=== PATIENT | male | born 1990 | race American Indian/Alaskan Native ===

== ENCOUNTER 2019-05-06 17:19 | Emergency (ER) | payer OTHER ==
--- NOTE | 2019-05-06 18:06 | Event Note ---
ED Screening Note ED Screening Note: R INDEX FINGER PAIN SP HITTING IT WITH HAMMER LARGE LAC TDAP UTD MEDICATED WITH MOTRIN This initial assessment/diagnostic orders/clinical plan/treatment(s) is/are subject to change based on patients health status, clinical progression and re- assessment by fellow clinical providers in the ED. Further treatment and workup at subsequent clinical providers discretion. Patient/guardian urged not to elope from the ED as their condition may be serious if not clinically assessed and managed. Initial orders include: XRAY LAC REPAIR
[2019-05-06 18:09] VITALS: BP 157/84
[2019-05-06] MEDS ORDERED: XYLOCAINE 1% 20 mL INFILTRATI ONE (18:11)
[2019-05-06] MEDS ORDERED: IBUPROFEN PO ONE (18:11)
[2019-05-06] MEDS ORDERED: NACL 0.9% IR ONE (18:11)
--- NOTE | 2019-05-06 18:57 | XRay Report ---
Right index finger 3 views 1834 INDICATION: Struck right index finger with sledgehammer today, pain Extensive soft tissue swelling is seen in the distal aspect of the index finger, particularly ventral ly in the distal phalanx. On AP and oblique views a tiny bony density is seen just lateral to the bas e of the tuft of the distal phalanx which could be a tiny avulsion though I do not see an obvious don or site. No other evidence of fracture or dislocation is seen. No soft tissue gas is seen. Signer Name: Joao Norris MD Signed: 05/06/2019 6:53 PM Workstation Name: [id number]
[2019-05-06] MEDS ORDERED: ROCEPHIN IM ONE (19:11)
[2019-05-06] MEDS ORDERED: XYLOCAINE 1% MPF 5 mL INFILTRATI ONE ×2 (19:11→19:28)
[2019-05-06] MEDS ORDERED: NORCO 5/325 PO ONE (19:25)
[2019-05-06] MEDS ORDERED: BOOSTRIX IM ONE (19:26)
[2019-05-06] MEDS ORDERED: XYLOCAINE 2% INFILTRATI ONE ×2 (19:30→19:41)
--- NOTE | 2019-05-06 20:55 | Emergency Department Report ---
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 there is minimal swelling no paralysis MD Complaint: Injury to:: right Onset/Timin -: hour(s) Other Extremity Injury: Fingers: Right (right index finger ) Other Injuries: none Handedness: right Place: work Severity scale (0 -10): 7 Improves With: none Worsens With: medication, movement of extremity Context: direct blow Associated Symptoms: denies other symptoms - Related Data Previous Rx's Medication Instructions Recorded Last Taken Type Ibuprofen [Motrin] 800 mg PO Q8HR PRN #20 tablet 08/12/16 Unknown Rx cephALEXin [Keflex] 500 mg PO Q8HR 10 Days #30 cap 05/06/19 Unknown Rx traMADol [Ultram] 50 mg PO Q6HR PRN #12 tablet 05/06/19 Unknown Rx Allergies Allergy/AdvReac Type Severity Reaction Status Date / Time No Known Allergies Allergy Verified 05/06/19 18:14 ED Review of Systems ROS: Stated complaint: SMASHED FINGERS Other details as noted in HPI Constitutional: denies: chills, fever Eyes: denies: eye pain, eye discharge, vision change ENT: denies: ear pain, throat pain Respiratory: denies: cough, shortness of breath, wheezing Cardiovascular: denies: chest pain, palpitations Endocrine: no symptoms reported Gastrointestinal: denies: abdominal pain, nausea, diarrhea Genitourinary: denies: urgency, dysuria Musculoskeletal: other (laceration right index ) Skin: denies: rash, lesions Neurological: denies: headache, weakness, paresthesias Psychiatric: denies: anxiety, depression Hematological/Lymphatic: denies: easy bleeding, easy bruising ED Past Medical Hx - Past Medical History Previous Medical History?: No - Surgical History Past Surgical History?: Yes Additional Surgical History: inguinal hernia repair - Social History Smoking Status: Current Every Day Smoker - Medications Home Medications: Home Medications Medication Instructions Recorded Confirmed Last Taken Type Ibuprofen [Motrin] 800 mg PO Q8HR PRN #20 tablet 08/12/16 Unknown Rx cephALEXin [Keflex] 500 mg PO Q8HR 10 Days #30 cap 05/06/19 Unknown Rx traMADol [Ultram] 50 mg PO Q6HR PRN #12 tablet 05/06/19 Unknown Rx ED Physical Exam - General Limitations: No Limitations General appearance: alert, in no apparent distress - Head Head exam: Present: atraumatic, normocephalic - Eye Eye exam: Present: normal appearance, PERRL, EOMI Pupils: Present: normal accommodation - ENT ENT exam: Present: mucous membranes moist - Neck Neck exam: Present: normal inspection - Respiratory Respiratory exam: Present: normal lung sounds bilaterally. Absent: respiratory distress, wheezes, rales, chest wall tenderness - Cardiovascular Cardiovascular Exam: Present: regular rate, normal rhythm, normal heart sounds. Absent: systolic murmur, diastolic murmur, rubs, gallop - GI/Abdominal GI/Abdominal exam: Present: soft, normal bowel sounds. Absent: distended, tenderness, bruit, hernia - Rectal Rectal exam: Present: deferred - Extremities Exam Extremities exam: Present: full ROM, tenderness, normal capillary refill, joint swelling (mild finger swelling ). Absent: pedal edema, calf tenderness - Expanded Upper Extremity Exam Right Hand Wrist exam: Present: full ROM, tenderness, swelling, laceration. Absent: ecchymosis, deformity, crepidus, dislocation, erythema, amputation, nail avulsion, subungual hematoma Neuro motor exam: Present: wrist extension intact, thumb opposition intact, thumb IP flexion intact, thumb adduction intact, fingers 2-5 abduction intact Neurosensory exam: Present: 2-point discrimination, radial nerve intact, ulnar nerve intact, median nerve intact Vascular: Present: normal capillary refill, radial pulse, brachial pulse, ulnar pulse. Absent: vascular compromise, pulse deficit radial art, pulse deficit ulnar art, pulse deficit brachial art - Back Exam Back exam: Present: normal inspection, full ROM. Absent: tenderness, CVA tenderness (R), CVA tenderness (L), muscle spasm, paraspinal tenderness, vertebral tenderness, rash noted - Neurological Exam Neurological exam: Present: alert, oriented X3, CN II-XII intact, normal gait. Absent: motor sensory deficit - Psychiatric Psychiatric exam: Present: normal affect, normal mood - Skin Skin exam: Present: warm, dry, normal color, other (laceration ). Absent: rash ED Course Vital Signs 05/06/19 18:04 Temperature 98.1 F Pulse Rate 71 Respiratory 16 Rate Blood Pressure 157/84 Blood Pressure 157/84 [Right] O2 Sat by Pulse 99 Oximetry - Laceration /Wound Repair Right Finger Wound Location: upper extremity Wound Length (cm): 3 Wound's Depth, Shape: irregular, flap Wound Explored: contaminated Irrigated w/ Saline (ccs): 250 Anesthesia: 1% Lidocaine Volume Anesthetic (ccs): 2 (digital block ) Wound Debrided: minimal Wound Repaired With: sutures Suture Size/Type: 4:0, nylon Number of Sutures: 12 Layer Closure?: No Progress: right index finger laceration 3 cm irregular bleeding controlle wound cleaned with betadine solution, anesthesia with 1% lidocaine 2 cc via digital block wound explored and irrigated with 250 cc sterile saline wound closed with 4.0 nylon x 12 sutures. all bleeding is controlled cms remains intact there is no nerve tendon or muscle damage distal pulses intact sterile dressing applied all bleeding is controlled pt tolerated procedure with minimal distress. ED Medical Decision Making - Radiology Data Radiology results: report reviewed, image reviewed Ordering Physician: SATINDER RAIN Date of Service: 05/06/19 Procedure(s): XR finger(s) 2+V RT Accession Number(s): [id number] cc: SATINDER RAIN Fluoro Time In Minutes: Right index finger 3 views 1833 INDICATION: Struck right index finger with sledgehammer today, pain Extensive soft tissue swelling is seen in the distal aspect of the index finger, particularly ventrally in the distal phalanx. On AP and oblique views a tiny bony density is seen just lateral to the base of the tuft of the distal phalanx which could be a tiny avulsion though I do not see an obvious donor site. No other evidence of fracture or dislocation is seen. No soft tissue gas is seen. Signer Name: Joao Norris MD Signed: 05/06/2019 6:53 PM Workstation Name: [id number] Transcribed By: GJ Dictated By: Joao Norris MD Electronically Authenticated By: Joao Norris MD Signed Date/Time: 05/06/191852 DD/ 50 TD/TT: - Medical Decision Making laceration repaired see procedure note all bleeding is controlled sterile dressing intact pt will follow up with pcp in 2 days for wound check and 7-10 days suture removal pt dc'd to home in stable condition at thist time. Critical care attestation.: If time is entered above; I have spent that time in minutes in the direct care of this critically ill patient, excluding procedure time. ED Disposition Clinical Impression: Finger laceration Qualifiers: Encounter type: initial encounter Finger: index finger Damage to nail status: without damage Foreign body presence: without foreign body Laterality: right Qualified Code(s): S61.210A - Laceration without foreign body of right index finger without damage to nail, initial encounter Disposition: DC-01 TO HOME OR SELFCARE Is pt being admited?: No Does the pt Need Aspirin: No Condition: Stable Instructions: Laceration (ED), Suture Care (ED) Prescriptions: cephALEXin [Keflex] 500 mg PO Q8HR 10 Days #30 cap traMADol [Ultram] 50 mg PO Q6HR PRN #12 tablet PRN Reason: Pain [facility] [Primary Care Provider] - 3-5 Days Forms: Work/School Release Form(ED) Time of Disposition: 21:06
== END 2019-05-06 21:12 | disposition home or self-care (01) ==
LOC: ED 17:19
DX: S61.210A Laceration without foreign body of right index finger without damage to nail, initial encounter (principal); F17.200 Nicotine dependence, unspecified, uncomplicated; Z98.890 Other specified postprocedural states; Z79.1 Long term (current) use of non-steroidal anti-inflammatories (NSAID); Y29.XXXA Contact with blunt object, undetermined intent, initial encounter; Y93.89 Activity, other specified; Y92.69 Other specified industrial and construction area as the place of occurrence of the external cause; Y99.8 Other external cause status
CPT/HCPCS: 12002; 73140; 90471; 90715; 96372; 99283; J0696